=== PATIENT | male | born 1970 | race Caucasian/White ===

== ENCOUNTER 2017-07-19 20:50 | Emergency (ER) | payer OTHER ==
[~2017-07-19] VITALS: Ht 185.4 cm; Wt 143.3 kg
[~2017-07-19 20:50] MED LIST: CARAFATE1 GM/10 ML PO; CELEXA20 MG PO; CIPRO500 MG PO; COLACE 100 MG100 MG PO; DIAZEPAM 10 MG10 M1 PO; FLEXERIL PO; FLOMAX0.4 MG PO; HYDROCODON-ACE1 EA12 PO; HYDROCODON-ACE1 EAC4 PO; IBUPROFEN 800800 M1 PO; LEVAQUIN 500 M500 M2 PO; LIORESAL 10 MG10 MG PO; MAGOX 400400 MG PO; MEN'S MULTI-VI1 EACH PO; METAMUCIL PAC1 UDPK1; MIRALAX255 GM PO; MOBIC15 MG PO; NEURONTIN 300300 M1 PO; NEXIUM; NORCO 10-325 T1 EACH PO; NORCO 5-325 TA1 EACH PO; OMEPRAZOLE 20 M20 MG PO; OMEPRAZOLE40 MG PO; OXYCONTIN10 M1 PO; PANCRELIPASE PO; PHENERGAN 25 MG25 M1 PO; PREDNISONE 20 M20 MG PO; SUPER ENZYME C1 EACH PO; ULTRAM 50MG TAB50 MG; ZANAFLEX4 M1 PO; ZESTRIL20 MG PO
[2017-07-19 21:09] LABS: ABSOLUTE BASOPHILS 0.1 thou/uL (0.0-0.2); ABSOLUTE EOSINOPHILS 0.1 thou/uL (0.0-0.7); ABSOLUTE LYMPHOCYTES 2.7 thou/uL (0.8-5.3); ABSOLUTE MONOCYTES 0.9 thou/uL (0.0-1.2); ABSOLUTE NEUTROPHILS 12.7 thou/uL (1.6-8.1); BASOPHILS 0.6 %; EOSINOPHILS 0.5 %; HEMATOCRIT 48.1 % (42.0-52.0); HEMOGLOBIN 15.9 gm/dL (14.0-18.0); LYMPHOCYTES 16.6 %; MCH 28.5 pg (26.0-34.0); MCV 86.3 fL (80.0-100.0); MONOCYTES 5.3 %; MPV 7.9 fl. (7.2-11.1); NUCLEATED RBCS 0 /100WBC; PLATELET COUNT* 418 thou/uL (150-400); RBC 5.58 mil/uL (4.50-6.00); RDW-CV 13.9 % (10.5-14.5); WBC 16.4 thou/uL (4.0-11.0)
[2017-07-19 21:16] LABS: ANION GAP 10 mmol/L (7-16); BUN 14 mg/dL (7-18); CHLORIDE 100 mmol/L (98-107); CO2 28 mmol/L (21-32); CREATININE 1.4 mg/dL (0.6-1.3); GLUCOSE 144 mg/dL (70-99); POTASSIUM 4.1 mmol/L (3.5-5.1); SODIUM 138 mmol/L (136-145)
[2017-07-19 21:19] LABS: APTT 25.3 Seconds (25.0-31.3); INR 1.1; PROTIME 10.5 Seconds (9.20-11.50)
[2017-07-19 21:27] LABS: ALBUMIN 4.7 g/dL (3.4-5.0); ALKALINE PHOSPHATASE 121 U/L (46-116); LIPASE 193 U/L (73-393); NT-PRO BRAIN NAT PEPTIDE 65 pg/mL (<300); SGOT 32 U/L (15-37); SGPT 68 U/L (30-65); TOTAL BILIRUBIN 0.5 mg/dL (<0.1-1.0); TOTAL PROTEIN 9.3 g/dL (6.4-8.2); TROPONIN-I LEVEL <0.06 ng/mL (<0.06)
[2017-07-20 00:28] VITALS: BP 133/85
--- NOTE | 2017-07-20 09:40 | EKG ---
[place] [address] ELECTROCARDIOGRAM REPORT Name: SOFIE KOHLER Room: [facility]#: [id number] Admission: 07/19/17 Attend Phys: Discharge: 07/20/17 Date of : 74 Report #: [id number] THIS REPORT FOR: //name// [facility] ED Test Date: 2017-07-19 Test Time: 21:02:13 Pat Name: SOFIE KOHLER Department: Room: Gender: M Surgical Manager: Nir PRINCE : 1970 Requested By: Cammy Baptiste Order Number: [id number] MD: Ronal Hall Measurements Intervals [place] Rate: 114 P: 31 NE: 178 QRS: 3 QRSD: 78 T: -4 QT: 305 QTc: 421 Interpretive Statements Sinus tachycardia Low voltage, precordial leads Left ventricular hypertrophy by voltage Borderline T abnormalities, inferior leads Baseline wander in lead(s) V1,V4 Compared to ECG 10/03/2016 11:54:02 Myocardial infarct finding no longer present T-wave abnormality still present Electronically Signed On 07-20-2017 9:40:33 CDT by Ronal Hall [email or web address] <ELECTRONICALLY SIGNED> By: Ronal Hall MD, FACC 07/20/1740 01 01 Ronal Hall MD, FACC /EPI
--- NOTE | 2017-07-20 09:40 | EKG ---
[place] [address] ELECTROCARDIOGRAM REPORT Name: SOFIE KOHLER Room: [facility]#: [id number] Admission: 07/19/17 Attend Phys: Discharge: 07/20/17 Date of : 74 Report #: [id number] THIS REPORT FOR: //name// [facility] ED Test Date: 2017-07-19 Test Time: 20:54:35 Pat Name: SOFIE KOHLER Department: Room: Gender: M Pear Picker: Nir PRINCE : 1970 Requested By: Cammy Baptiste Order Number: [id number] MD: Ronal Hall Measurements Intervals [place] Rate: 193 P: 0 CO: 68 QRS: 12 QRSD: 98 T: -83 QT: 276 QTc: 495 Interpretive Statements Supraventricular tachycardia Low voltage, precordial leads Left ventricular hypertrophy by voltage Repolarization abnormality, prob rate related Baseline wander in lead(s) II,aVR,aVF,V1,V2,V3,V4,V5,V6 Compared to ECG 10/03/2016 11:54:02 Early repolarization now present Sinus tachycardia no longer present T-wave abnormality no longer present Myocardial infarct finding no longer present Electronically Signed On 07-20-2017 9:40:11 CDT by Ronal Hall [email or web address] <ELECTRONICALLY SIGNED> By: Ronal Hall MD, [facility] 07/20/17939 53 53 Ronal Hall MD, [facility] /EPI
== END 2017-07-20 00:29 | disposition home or self-care (01) ==
LOC: M.ERS 20:50
PROVIDERS: Personal Emergency Response Attendant
DX: I47.1 Supraventricular tachycardia (principal); Z91.040 Latex allergy status; Z88.8 Allergy status to other drugs, medicaments and biological substances; J45.909 Unspecified asthma, uncomplicated; K21.9 Gastro-esophageal reflux disease without esophagitis